=== PATIENT | male | born 1960 | race Caucasian/White ===

== ENCOUNTER 2025-03-08 07:16 | Outpatient (OUT) | payer BC, SELFPAY ==
--- NOTE | 2025-03-08 07:00 | NM_ITS ---
[facility] [place] [id number] Patient Name: JENNIFER ROBLES MRN: [id number] date: 1960 Sex: M Assigned Patient Location: NM Current Patient Location: Accession/Order Number: [id number] Exam Date: 03/08/2025 07:00 Report Date: 03/09/2025 08:13 At the request of: BOB DAMICO Procedure: NM thyroid w uptake THYROID UPTAKE AND SCINTIGRAM COMPARISON: None CLINICAL DATA: Hyperthyroidism Following the oral ingestion of 0.199 mCi of I-123, thyroid uptakes were measured at 6 hours and 24 hours. These measurements are 11% and 19% respectively. These values are in normal range. Gamma camera imaging was also performed in multiple projections. The thyroid lobes appear symmetric and within normal limits for size. No discrete hot or cold nodules are identified. NM/NM thyroid w uptake IMPRESSION: WITHIN NORMAL LIMITS. Impression dictated by: Alvina Soni M.D. 03/09/2025 8:13 AM Dictation Location: [place] [address] Electronically authenticated by: [id number] Y Date: 03/09/2025 08:13
== END 2025-03-08 07:17 | disposition home or self-care (01) ==
LOC: NM 07:16
PROVIDERS: PCP Family Medicine; Visit Provider Family Medicine
DX: E05.90 Thyrotoxicosis, unspecified without thyrotoxic crisis or storm (principal)
CPT/HCPCS: 78014; A9516

== ENCOUNTER 2025-04-01 13:34 | Emergency (ER) | payer BC, SELFPAY ==
[2025-04-01] VITALS (22 sets, daily range): BP systolic 107–149; BP diastolic 63–98; PULSE 73–101; TEMP 36.9; O2SAT 92–98; BMI 36.2
--- NOTE | 2025-04-01 13:51 | ECG_ITS ---
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
--- NOTE | 2025-04-01 13:51 | XR_ITS ---
[facility] [place] [id number] Patient Name: JENNIFER ROBLES MRN: [id number] date: 1960 Sex: M Assigned Patient Location: ER Current Patient Location: ER Accession/Order Number: [id number] Exam Date: 04/01/2025 14:00 Report Date: 04/01/2025 14:17 At the request of: JOON ZIMMER MD Procedure: XR chest 1V XR chest 1V 04/01/2025 2:05 PM SIGNS AND SYMPTOMS: Left-sided chest pain, cough PROTOCOL: Frontal radiograph of the chest COMPARISON: None FINDINGS: The trachea is midline. Atherosclerotic changes are present in the thoracic aorta. The heart and mediastinal structures are within normal limits. Calcified granulomas are noted in the left mid chest. The lung parenchyma is clear. The bony thorax is intact. Degenerative changes are noted in the shoulders and thoracic spine. XR/XR chest 1V IMPRESSION: No acute cardiopulmonary pathology. Impression dictated by: Wilian Cassidy M.D. 04/01/2025 2:17 PM Dictation Location: [place] [address] Electronically authenticated by: [id number] Y Date: 04/01/2025 14:17
--- NOTE | 2025-04-01 13:52 | ED.GENADUL1 ---
HPI HPI - General Adult General Chief complaint: Chest Pain Stated complaint: CHEST PAIN Time Seen by Provider: 04/01/25 13:40 Source: patient Mode of arrival: walk-in Limitations: no limitations History of Present Illness HPI narrative: 65-year-old male presents for chest pain. He has been having it intermittently since 6 PM last night and it last 10 to 15 minutes at a time. He states it is just the pain, he cannot describe it further but sometimes it feels like heartburn. No complaints of shortness of breath or back pain and it does not seem to radiate. He saw his doctor earlier this week who ordered a stress test because of an abnormal EKG. He was not having chest pain prior to 6 PM last night. Related Data Home Medications ?Medication ?Instructions ?Recorded ?Confirmed benazepril 10 tab 04/01/25 mg-hydrochlorothiazide 12.5 mg tablet methimazole 5 mg tablet mg 04/01/25 rosuvastatin 40 mg tablet mg 04/01/25 tamsulosin 0.4 mg capsule mg PO 04/01/25 Allergies Allergy/AdvReac Type Severity Reaction Status Date / Time No Known Drug Allergies Allergy Verified 04/01/25 13:51 Opioid HPI Opioid Management Most Recent Opioid Data: Last Pain Scale 0 Today, 13:47 Review of Systems ROS Narrative A ten point review of systems is negative except as noted above. Exam Narrative Exam Narrative: Nurses note and vital signs reviewed General:The patient appears in no apparent distress. Skin:Warm, dry, no pallor noted.There is no rash noted. Head:Normocephalic, atraumatic Eye: Normal conjunctiva, no drainage Ears, Nose, Mouth, and Throat: oral mucosa is moist. Nares patent. Cardiovascular:Regular Rate and Rhythm Respiratory:Patient is in no distress, no accessory muscle use, lungs are clear to auscultation, no wheezing, rales or rhonchi Back:non-tender GI: Soft and nontender Musculoskeletal: The patient has no evidence of calf tenderness, no pitting edema, symmetrical pulses noted bilaterally Neurological:A&O, normal speech Psychiatric:Cooperative Constitutional Vital Signs, click to edit/add: Last Vital Signs Temp 98.4 F 04/01/25 13:47 Pulse 87 04/01/25 15:50 Resp 14 04/01/25 15:50 BP 107/84 04/01/25 15:46 Pulse Ox 94 L 04/01/25 15:50 O2 Del Method Room Air 04/01/25 13:47 Course Vital Signs Vital signs: Vital Signs Temperature 98.4 F 04/01/25 13:47 Pulse Rate 98 H 04/01/25 13:47 Respiratory Rate 16 04/01/25 13:47 Blood Pressure 149/98 H 04/01/25 13:47 Pulse Oximetry 98 04/01/25 13:47 Oxygen Delivery Method Room Air 04/01/25 13:47 Temperature 98.4 F 04/01/25 13:47 Pulse Rate 87 04/01/25 15:50 Respiratory Rate 14 04/01/25 15:50 Blood Pressure 107/84 04/01/25 15:46 Pulse Oximetry 94 L 04/01/25 15:50 Oxygen Delivery Method Room Air 04/01/25 13:47 Medical Decision Making MDM Narrative Medical decision making narrative: 2 sets of troponin are negative. The patient thinks his symptoms are due to anxiety. He is getting a stress test scheduled from his family physician and will follow through and that was discussed with him thoroughly. He does not require admission to the hospital at this point. Treatment diagnosis and follow-up were discussed with the patient. Differential Diagnosis Differential Diagnosis: Chest pain, anxiety, STEMI, NSTEMI, pneumothorax Lab Data Lab results reviewed: Yes I reviewed the patient's lab results Labs: Lab Results 04/01/25 04/01/25 Range/Units 13:58 14:50 WBC 9.0 (4.0-11.0) 10^3/uL RBC 5.34 (4.70-6.10) 10^6/uL Hgb 17.3 (14.0-18.0) g/dL Hct 48.2 (42.0-54.0) % MCV 90.3 (80.0-94.0) fL MCH 32.4 (25.9-34.0) pg MCHC 35.9 H (29.9-35.2) g/dL RDW 12.5 (11.0-15.0) % Plt Count 226 (150-450) 10^3/uL MPV 10.1 (9.5-13.5) fL Neut % (Auto) 52.4 (43.0-75.0) % Lymph % (Auto) 33.5 (20.5-60.0) % [place] % (Auto) 11.7 (1.7-12.0) % Eos % (Auto) 1.8 (0.9-7.0) % Baso % (Auto) 0.4 (0.2-2.0) % Neut # (Auto) 4.7 (1.4-6.5) 10^3/uL Lymph # (Auto) 3.0 (1.2-3.8) 10^3/uL [place] # (Auto) 1.1 H (0.3-0.8) 10^3/uL Eos # (Auto) 0.2 (0.0-0.7) 10^3/uL Baso # (Auto) 0.0 (0.0-0.1) 10^3/uL Abs Immat Gran (auto) 0.02 (0.00-0.03) 10^3/uL Imm/Tot Granulo (auto) 0.2 (0.0-0.5) % Sodium 138 (136-145) mmol/L Potassium 3.4 L (3.5-5.1) mmol/L Chloride 100 (98-107) mmol/L Carbon Dioxide 27.9 (21.0-32.0) mmol/L Anion Gap 13.5 BUN 10.0 (7.0-18.0) mg/dL Creatinine 0.63 L (0.70-1.30) mg/dL Est GFR ( Amer) >60 (>=60 mL/min/1.73m^2) Est GFR (Non-Af Amer) >60 (>=60 mL/min/1.73m^2) BUN/Creatinine Ratio 15.9 Glucose 104 (74-106) mg/dL Calcium 10.8 H (8.5-10.1) mg/dL Troponin I High Sens 9.7 11.0 (4.0-76.1) pg/mL Imaging Data Chest x-ray: Radiologist's impression: ITS Impressions Chest X-Ray 04/01/25 13:51 IMPRESSION: No acute cardiopulmonary pathology. Impression dictated by: Wilian Cassidy M.D. 04/01/2025 2:17 PM Dictation Location: [place] [address] Electronically authenticated by: [id number] Y Date: 04/01/2025 14:17 ECG Data Attestation: I personally reviewed and interpreted this ECG as follows: (EKG on my interpretation shows normal sinus rhythm with a rate of [address] segment changes) Discharge Plan Discharge Chief Complaint: Chest Pain Clinical Impression: Chest pain Patient Disposition: Home, Self-Care Time of Disposition Decision: 15:55 Condition: Good Mode of Transportation: Private Vehicle Prescriptions / Home Meds: No Action tamsulosin 0.4 mg capsule PO methimazole 5 mg tablet benazepril-hydrochlorothiazide 10-12.5 mg tablet rosuvastatin 40 mg tablet Print Language: [place] Instructions: Chest Pain (ED) Referrals: BOB DAMICO [Primary Care Provider, Family Practice] - 1 week
[2025-04-01] MEDS: ASPIRIN 81 MG TAB.CHEW 324 MG PO (13:55)
[2025-04-01 14:08] LABS: Hematocrit 48.2 % (42.0-54.0); Hemoglobin 17.3 g/dL (14.0-18.0); Immature Granulocytes Abs Auto 0.02 10^3/uL (0.00-0.03); Immature Granulocytes Pct Auto 0.2 % (0.0-0.5); Lymphocytes Absolute Auto 3.0 10^3/uL (1.2-3.8); Mean Corpuscular HGB Conc 35.9 g/dL (29.9-35.2); Mean Corpuscular Hemoglobin 32.4 pg (25.9-34.0); Mean Corpuscular Volume 90.3 fL (80.0-94.0); Platelet Count 226 10^3/uL (150-450); Red Blood Count 5.34 10^6/uL (4.70-6.10); White Blood Count 9.0 10^3/uL (4.0-11.0)
[2025-04-01 14:24] LABS: Anion Gap 13.5; Blood Urea Nitrogen 10.0 mg/dL (7.0-18.0); Calcium 10.8 mg/dL (8.5-10.1); Carbon Dioxide 27.9 mmol/L (21.0-32.0); Chloride 100 mmol/L (98-107); Estimated GFR (African America >60 (>=60 mL/min/1.73m^2); Estimated GFR (Non-African Ame >60 (>=60 mL/min/1.73m^2); Glucose 104 mg/dL (74-106); Potassium 3.4 mmol/L (3.5-5.1); Sodium 138 mmol/L (136-145)
== END 2025-04-01 16:00 | disposition home or self-care (01) ==
PROVIDERS: Emergency Provider Emergency Medicine; PCP Family Medicine
DX: R07.9 Chest pain, unspecified (principal)
CPT/HCPCS: 36415; 71045; 80048; 84484; 85025; 93005; 99284; 99285